=== PATIENT | male | born 1955 ===

== ENCOUNTER → 2023-01-03 11:41 | Outpatient (CLI) | payer BC, SELFPAY ==
--- NOTE | ~2023-01-03 | XR_ITS ---
Right ankle Technique: AP, oblique, and lateral views were obtained. Clinical History: Pain Findings: No acute fracture or dislocation is seen. There is moderate degenerative change of the tibi otalar joint. Remaining joint spaces are preserved. There is mild diffuse soft tissue swelling about the ankle. Impression: No acute fracture or dislocation. 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 Reviewed, dictated and finalized at location . CUSTODIAN Impression: No acute fracture or dislocation. 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
== END ==
PROVIDERS: PCP Family Medicine; Visit Provider Family Medicine
DX: M19.071 Primary osteoarthritis, right ankle and foot (principal)
CPT/HCPCS: 73610

== ENCOUNTER 2023-12-12 14:15 | Emergency (ER) | payer BC, SELFPAY ==
--- NOTE | ~2023-12-12 | CT_ITS ---
EXAMINATION: CT cervical spine wo con DATE: 12/12/2023 17:12 INDICATION: Head injury. TECHNIQUE: Computed tomography (CT) of the cervical spine was performed without intravenous contrast. Automated exposure control and iterative reconstruction technique were employed. The dose-length pro duct was 404.11 mGy-cm. COMPARISON: None FINDINGS: There is kyphosis of cervical spine. There is mild chronic anterior wedging of C6 vertebral body. There is mildly decreased disc height at C4-C5 and severely decreased disc height at C5-C6 and C6-C7. The following disc levels are specifically discussed: C2-C3: There is mild right and severe left uncovertebral joint osteoarthritis. There is severe bilate ral facet joint osteoarthritis. There is mild bilateral neural foraminal stenosis. There is no centra l canal stenosis. C3-C4: There is moderate right and severe left uncovertebral joint osteoarthritis. There is severe bi lateral facet joint osteoarthritis. There is moderate right and mild left neural foraminal stenosis. There is mild central canal stenosis. C4-C5: There is severe right and mild left uncovertebral joint osteoarthritis. There is severe bilate ral facet joint osteoarthritis. There is mild bilateral neural foraminal stenosis. There is mild cent ral canal stenosis. C5-C6: There is severe bilateral uncovertebral joint osteoarthritis. There is severe right and mild l eft facet joint osteoarthritis. There is moderate right and mild left neural foraminal stenosis. Ther e is mild central canal stenosis. C6-C7: There is severe bilateral uncovertebral joint osteoarthritis. There is severe right and mild l eft facet joint osteoarthritis. There is mild right and moderate left neural foraminal stenosis. Ther e is mild central canal stenosis. C7-T1: There is mild bilateral uncovertebral joint osteoarthritis. There is severe bilateral facet michael int osteoarthritis. There is mild bilateral neural foraminal stenosis. There is no central canal sten osis. IMPRESSION: 1. No fracture. 2. Severe cervical spondylosis. Reviewed, dictated and finalized at location E. LATORY AGENCY DIRECTOR
--- NOTE | ~2023-12-12 | CT_ITS ---
EXAMINATION: CT brain wo con DATE: 12/12/2023 17:12 INDICATION: Head injury. Dizziness. TECHNIQUE: Computed tomography (CT) of the head was performed without intravenous contrast. The mA wa s adjusted according to patient size. Iterative reconstruction technique was employed. The dose-lengt h product was 605.33 mGy-cm. COMPARISON: None FINDINGS: There is no intracranial hemorrhage, acute infarction, or abnormal intracranial mass lesion . The ventricles are normal in size. The orbits are normal. There is mucosal thickening in the parana chon sinuses. The mastoid air cells are normal. IMPRESSION: 1. Normal brain. Reviewed, dictated and finalized at location E. LOPE MAKER IMPRESSION: 1. Normal brain.
[2023-12-12 14:23] VITALS: BP 151/108; PULSE 81; RESP 16; TEMP 36.6; O2SAT 99
--- NOTE | 2023-12-12 18:14 | ED.FALL ---
HPI - Fall General Chief Complaint: Fall Stated Complaint: fall, hit head, back pain Time Seen by Provider: 12/12/23 16:57 Source: patient Mode of arrival: ambulatory Limitations: no limitations History of Present Illness HPI Narrative: patient is a 68-year-old male who presents the ED with report of a fall. Patient reports he slipped on ice this morning and fell backwards, hitting the back of his head against the ice. He also landed on his tailbone. He did not lose consciousness. He complains of very mild pain to his tailbone see a 2 year he experienced dizziness with standing upright. denies any other complaints. Denies neck or back pain. Denies chest pain, difficulty breathing, vision changes, nausea, vomiting. Patient takes aspirin 81 mg daily. No other blood thinners. Related Data Home Medications Medication Instructions Recorded Confirmed aspirin 81 mg chewable tablet 81 mg PO .qod 04/08/23 07/04/23 (Can Chewable Low Dose Aspirin) Allergies Allergy/AdvReac Type Severity Reaction Status Date / Time No Known Allergies Allergy Verified 12/12/23 15:56 Review of Systems Review of Systems: CONSTITUTIONAL: Denies fever, chills, or sweats. ENT: Denies vision changes. CARDIOVASCULAR: Denies chest pain, palpitations, or edema. RESPIRATORY: Denies cough or dyspnea. GASTROINTESTINAL: Denies abdominal pain, nausea, vomiting. MUSCULOSKELETAL: See HPI. NEUROLOGIC: See HPI. All systems reviewed & are unremarkable except as noted in HPI and below PMFSH Past Medical History Medical History Chronic low back pain without sciatica Essential (primary) hypertension Hyperlipidemia, unspecified Surgical History Surgical History History of hernia surgery 2015 History of knee replacement 2017 Family History Family History Father Hypertension Family history of Parkinson's disease Mother Hypertension Family history of pancreatic cancer Family history of malignant neoplasm Sibling Acute myocardial infarction Other Family history of cardiovascular disease Social History Social History Smoking status: Never smoker Second hand tobacco smoke exposure: No Alcohol intake: current Drinks per week: 4 Substance use: never Substance use type: does not use Lack of Transportation: No Lack of Food: Never True Current Housing: I Have Housing Concerned About Future Housing: No Difficulty Paying Gas/Electric Bills: No Difficulty Paying for Meds: No Currently Unemployed: No Education: High School Diploma/GED Difficulty w/ Childcare or Family Care: No Living arrangements: with family Gender identity (if verbalized by the patient): Male Spiritual care concerns: No Agree to blood products: Yes Exam Narrative: GENERAL: Well appearing, well-nourished, non-toxic, in no acute distress. HEAD: Normocephalic. small contusion to right posterior scalp, no significant tenderness. No wounds. EYES: PERRL/EOMI, conjunctiva clear. No nystagmus. RESPIRATORY: Airway patent, respirations nonlabored. Clear to auscultation bilaterally, no rales, rhonchi, wheezing. CARDIOVASCULAR: Regular rate and rhythm without murmurs, rubs, or gallops. MUSCULOSKELETAL: Moves all extremities. No gross deformities. No significant midline cervical, thoracic, lumbar spinal tenderness. Mild tenderness over distal tailbone region. SKIN: Warm, dry, normal color. NEURO: A&O X3. Speech clear. Cranial nerves II-XII grossly intact. Steady gait. No ataxic movements. No focal deficits. PSYCHIATRIC: Appropriate mood and affect. Normal interaction. Course Vital Signs Vital signs: Vital Signs Temperature 98 F 12/12/23 14:23 Pulse Rate 81 12/12/23 14:23
== END 2023-12-12 18:43 | disposition home or self-care (01) ==
PROVIDERS: Emergency Provider Physician Assistant; PCP Family Medicine
DX: S00.03XA Contusion of scalp, initial encounter (principal); I10 Essential (primary) hypertension; E78.5 Hyperlipidemia, unspecified; M47.812 Spondylosis without myelopathy or radiculopathy, cervical region; W00.0XXA Fall on same level due to ice and snow, initial encounter
CPT/HCPCS: 70450; 72125; 99284

== ENCOUNTER 2023-12-30 07:39 | Outpatient (CLI) | payer BC, SELFPAY ==
--- NOTE | 2023-12-30 08:12 | ECG_ITS ---
Measurements Intervals [place] Rate: 70 P: 44 NE: 200 QRS: 3 QRSD: 89 T: 54 QT: 376 QTc: 407 Interpretive Statements SINUS RHYTHM POSSIBLE LEFT ATRIAL ENLARGEMENT [-0.1mV P WAVE IN V1/V2] BORDERLINE ECG NO PREVIOUS ECG AVAILABLE FOR COMPARISON Electronically Signed On 12-30-2023 15:30:59 SECOND FLOOR OPERATOR by Richi Fleming M.D.
== END 2023-12-30 07:40 | disposition home or self-care (01) ==
LOC: ANHCARD 07:41
PROVIDERS: PCP Family Medicine; Visit Provider Physician Assistant Medical
DX: M25.519 Pain in unspecified shoulder (principal); R94.31 Abnormal electrocardiogram [ECG] [EKG]
CPT/HCPCS: 93005

== ENCOUNTER 2024-01-19 13:45 | Outpatient (CLI) | payer BC, SELFPAY ==
--- NOTE | 2024-01-19 14:12 | ECHO_ITS ---
Patient Info Name: Thierno Shepherd Age: 68 years : 1955 Gender: Male Ht: 75 in Wt: 225 lbs BSA: 2.34 m2 HR: 68 bpm BP: 138 / 87 mmHg Technical Quality: Fair Exam Date: 01/19/2024 2:25 PM Exam Location: Echo Lab Patient Status: Outpatient Admit Date: 01/19/2024 Staff Ordering Physician: Vanessa Rodney PA-C Us Marketing Director: Marycarmen Villalobos RDCS Attending Provider: Vanessa Rodney PA-C Referring Physician: Rashaun KING; Exam Type: CA echo doppler color flow Study Info Indications I51.7 - Cardiomegaly Complete two-dimensional, color flow and Doppler transthoracic echocardiogram is performed. Summary 1. Complete two-dimensional, color flow and Doppler transthoracic echocardiogram is performed. 2. Left ventricular chamber dimension is normal. 3. Left ventricular systolic function is normal, estimated at 60-65%. 4. The left ventricular diastolic function is grade I diastolic dysfunction. 5. E/e' 5 is not elevated. 6. No pulmonary hypertension, estimated pulmonary arterial systolic pressure is 23 mmHg. Left Ventricle E/e' 5 is not elevated. Left ventricular chamber dimension is normal. Left ventricular systolic function is normal, estimated at 60-65%. The left ventricular diastolic function is grade I diastolic dysfunction. Right Ventricle Right ventricular chamber dimension is normal. Right ventricular systolic function is normal. Left Atria Left atrial chamber dimension is normal. Right Atria Right atrial chamber dimension is normal. Aortic Valve The aortic valve is trileaflet. There is no aortic valve stenosis. There is no aortic valve regurgitation. Pulmonic Valve There is no pulmonic regurgitation. Mitral Valve There is no mitral valve stenosis. There is no mitral valve regurgitation. Tricuspid Valve There is no tricuspid valve regurgitation. No pulmonary hypertension, estimated pulmonary arterial systolic pressure is 23 mmHg. Pericardium/Pleural There is no pericardial effusion. Inferior Vena Cava Normal inferior vena cava with >50% collapse upon inspiration consistent with normal right atrial pressure, 5 mmHg. Aorta The aortic root size at the sinus of Valsalva is normal. Left Ventricular Outflow Tract Name Value Normal LVOT 2D LVOT Diameter 2.1 cm LVOT Doppler LVOT Peak Gradient 4 mmHg LVOT Mean Gradient 3 mmHg LVOT VTI 20 cm LVOT VTI/AV VTI Ratio 1.0 LVOT Stroke Volume 67 ml LVOT CO 15.6 l/min LVOT CI 6.7 l/min/m2 Pulmonic Valve Name Value Normal PV Doppler PV Peak Gradient 1 mmHg Mitral Valve Name Value Normal
== END 2024-01-19 13:46 | disposition home or self-care (01) ==
PROVIDERS: PCP Family Medicine; Visit Provider Physician Assistant Medical
DX: I51.7 Cardiomegaly (principal)
CPT/HCPCS: 93306

== ENCOUNTER 2024-08-21 02:06 | Day surgery (SDC) | payer BC, SELFPAY ==
[2024-07-30 14:46] VITALS: BMI 27.8
[2024-08-21 12:34] VITALS: BP 127/76; PULSE 83; RESP 18; TEMP 36.2; O2SAT 100
[2024-08-21] MEDS: LACTATED RINGERS 1,000 ML 30 ML IV CONT (12:48)
--- NOTE | 2024-08-21 13:29 | PM.IMHP ---
H&P: HPI History of Present Illness Date/Time: 08/21/24 13:29 Chief Complaint: screening for colorectal cancer Narrative: this is a 68-year-old man who presents for colonoscopy. He states his last colonoscopy was 10-12 years ago. He denies any hematochezia or melena. He denies family history of colon cancer. Review of Systems Review of Systems: All systems reviewed & are unremarkable except as noted in HPI and below Constitutional: Constitutional: Denies chills, Denies fever(s), Denies headache(s) and Denies weight loss Eyes: Eyes: Denies change in vision ENT: Denies dizziness, Denies headache(s), Denies neck mass and Denies throat swelling Cardiovascular: Cardiovascular: Denies chest pain, Denies lightheadedness and Denies dyspnea Respiratory: Respiratory: Denies cough, Denies dyspnea and Denies wheezing Gastrointestinal: Gastrointestinal: Denies abdominal pain, Denies change in bowel habits, Denies nausea and Denies vomiting Genitourinary: Genitourinary: Denies hematuria and Denies dysuria Musculoskeletal: Musculoskeletal: Reports as per HPI Integumentary/Breasts: Skin/Breast: Reports as per HPI Neurologic: Denies dizziness and Denies headache(s) Allergic/Immunologic: Allergic/Immunologic: Denies throat swelling and Denies wheezing COUNT INCLUDES THE [facility] Past Medical History Medical History Chronic low back pain without sciatica Essential (primary) hypertension Hyperlipidemia, unspecified Traumatic arthritis of right ankle Surgical History Surgical History History of hernia surgery 2015 History of knee replacement 2017 Family History Family History Father Hypertension Family history of Parkinson's disease Mother Hypertension Family history of pancreatic cancer Family history of malignant neoplasm Sibling Acute myocardial infarction Other Family history of cardiovascular disease Social History Social History Social History: caffeine use Smoking status: Never smoker Second hand tobacco smoke exposure: No Alcohol intake: current Drinks per week: 12 Alcohol use details: Beer Substance use: never Substance use type: does not use Lack of Transportation: No Lack of Food: Never True Current Housing: I Have Housing Concerned About Future Housing: No Difficulty Paying Gas/Electric Bills: No Difficulty Paying for Meds: No Currently Unemployed: No Education: High School Diploma/GED Difficulty w/ Childcare or Family Care: No Living arrangements: with family Occupation/Education: occupation 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[employer] Gender identity (if verbalized by the patient): Male Spiritual care concerns: No Agree to blood products: Yes Meds Home Medications and Allergies Home Medications Medication Instructions Recorded Confirmed Type aspirin 81 mg chewable tablet 81 mg PO .qod 04/08/23 08/21/24 History (Can Chewable Low Dose Aspirin) cyclobenzaprine 10 mg tablet 10 mg PO TID PRN muscle spasm #60 12/23/23 08/21/24 Rx tabs lisinopril 5 mg tablet 5 mg PO .HS 07/30/24 08/21/24 History simvastatin 20 mg tablet 20 mg PO DAILY 07/30/24 08/21/24 History Allergies Allergy/AdvReac Type Severity Reaction Status Date / Time No Known Allergies Allergy Verified 08/21/24 12:33 Vital Signs Vital Signs - 24 hr 08/21/24 12:34 Temperature 97.1 F L Pulse Rate 83 Respiratory Rate 18 Blood Pressure 127/76 Pulse Oximetry 100 Oxygen Delivery Room Air Exam Const: General: no acute distress and alert Orientation/consciousness: patient oriented x3 HENMT: Head: normocephalic and atraumatic Ears: hearing grossly normal bilaterally Face/Nose/Sinus: Normal nares present Mouth: Yes Normal oral
--- NOTE | 2024-08-21 13:57 | WPDANESEPPF ---
Anes - Initial Pre Proc Eval Procedure: Operation Date: 08/21/24 13:30 Proposed Procedures p Screening Colonoscopy - Logan Warren DO Date/Time: 08/21/24 13:57 Surgeon: Logan Warren DO Pre Op Diagnosis: screening for malignant neoplasm of colon Patient Data Age: 68 Gender: M Height: 1.93 m Weight: 103 kg Last Vital Signs Temp 97.1 F L 08/21/24 12:34 Pulse 83 08/21/24 12:34 Resp 18 08/21/24 12:34 BP 127/76 08/21/24 12:34 Pulse Ox 100 08/21/24 12:34 O2 Del Method Room Air 08/21/24 12:34 Allergies Allergy/AdvReac Type Severity Reaction Status Date / Time No Known Allergies Allergy Verified 08/21/24 12:33 Home Medications Medication Instructions Recorded Confirmed Type aspirin 81 mg chewable tablet 81 mg PO .qod 04/08/23 08/21/24 History (Can Chewable Low Dose Aspirin) cyclobenzaprine 10 mg tablet 10 mg PO TID PRN muscle spasm #60 12/23/23 08/21/24 Rx tabs lisinopril 5 mg tablet 5 mg PO .HS 07/30/24 08/21/24 History simvastatin 20 mg tablet 20 mg PO DAILY 07/30/24 08/21/24 History Patient hx anesthesia problems: none Family hx anesthesia problems: none Results Review: All pre-operative results and documents have been reviewed as part of the pre-operative evaluation. [facility] Past Medical History Medical History Chronic low back pain without sciatica Essential (primary) hypertension Hyperlipidemia, unspecified Traumatic arthritis of right ankle Surgical History Surgical History History of hernia surgery 2015 History of knee replacement 2017 Family History Family History Father Hypertension Family history of Parkinson's disease Mother Hypertension Family history of pancreatic cancer Family history of malignant neoplasm Sibling Acute myocardial infarction Other Family history of cardiovascular disease Social History Social History Social History: caffeine use Smoking status: Never smoker Second hand tobacco smoke exposure: No Alcohol intake: current Drinks per week: 12 Alcohol use details: Beer Substance use: never Substance use type: does not use Lack of Transportation: No Lack of Food: Never True Current Housing: I Have Housing Concerned About Future Housing: No Difficulty Paying Gas/Electric Bills: No Difficulty Paying for Meds: No Currently Unemployed: No Education: High School Diploma/GED Difficulty w/ Childcare or Family Care: No Living arrangements: with family Occupation/Education: occupation 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 ) Neurological: alert and oriented Last oral intake: 2 hours (liquids at 1200 noon. ) ASA classification: II Emergent: no Anesthetic plan: delay (By ASA standards, delay for 2 hours after liquids. ) Anesthesia type and monitoring: general GIVS and standard monitoring Results Review: All pre-operative results and documents have been reviewed as part of the pre-operative evaluation. Informed Consent: The patient's anesthetic plan and its attendant risks and benefits were discussed with the patient/family/POA. Questions were solicited and answers provided to the satisfaction of the patient/family/POA.
[2024-08-21 14:25] VITALS: BP 84/54; PULSE 68; RESP 20; O2SAT 97
[2024-08-21 14:35] VITALS: BP 92/59; PULSE 64; RESP 24; O2SAT 97
[2024-08-21 14:45] VITALS: BP 108/70; PULSE 65; RESP 22; O2SAT 97
== END 2024-08-21 15:04 | disposition home or self-care (01) ==
PROVIDERS: PCP Family Medicine; Visit Provider Surgery
PROC: 0DJD8ZZ Inspection of Lower Intestinal Tract, Via Natural or Artificial Opening Endoscopic (ICD-10-PCS; CPT 45378; principal; 2024-08-21 13:30)
DX: Z12.11 Encounter for screening for malignant neoplasm of colon (principal); K57.30 Diverticulosis of large intestine without perforation or abscess without bleeding; I10 Essential (primary) hypertension; E78.5 Hyperlipidemia, unspecified; M19.071 Primary osteoarthritis, right ankle and foot; G89.29 Other chronic pain; M54.50 Low back pain, unspecified; Z79.82 Long term (current) use of aspirin; Z98.890 Other specified postprocedural states; Z80.0 Family history of malignant neoplasm of digestive organs; Z82.49 Family history of ischemic heart disease and other diseases of the circulatory system
CPT/HCPCS: 45378; J2003; J2704; J7120